=== PATIENT | male | born 1990 | race Caucasian/White ===

== ENCOUNTER 2017-05-11 17:35 | Emergency (ER) | payer BC ==
[2017-05-11 17:45] VITALS: BP 133/74
[2017-05-11] MEDS ORDERED: CALAMINE/ZINC OXIDE 177 ML BOTTLE TOP STA (17:53)
--- NOTE | 2017-05-11 18:05 | ED Physician Documentation ---
PD HPI SKIN - Stated complaint Stated Complaint: SUNBURN - Chief complaint Chief Complaint: General - History obtained from History obtained from: Patient - History of Present Illness Timing - onset: How many days ago (2) Timing - details: Still present Location: Chest, Back Similar symptoms before: Has not had sx before - Additional information Additional information: The patient is an otherwise healthy 26-year-old male who presents with sunburn that he acquired 2 days ago. He complains of "deep itching" on his chest and back. He has applied anti-itch cream, without relief. He denies fever, headache, shortness of breath, nausea or vomiting. He denies history of similar symptoms in the past. Review of Systems Constitutional: denies: Fever Eyes: denies: Irritation Nose: denies: Congestion Throat: denies: Sore throat Respiratory: denies: Dyspnea GI: denies: Nausea, Vomiting Skin: reports: Other (Pruritic sunburn) Musculoskeletal: denies: Extremity swelling Neurologic: denies: Headache PD PAST MEDICAL HISTORY - Past Medical History Cardiovascular: None Respiratory: None Neuro: None Endocrine/Autoimmune: None - Past Surgical History Past Surgical History: No - Present Medications Home Medications: Ambulatory Orders Medication Instructions Recorded Confirmed diphenhydrAMINE [Benadryl] 50 mg PO Q4-6H #40 capsule 05/11/17 - Allergies Allergies/Adverse Reactions: Allergies Allergy/AdvReac Type Severity Reaction Status Date / Time No Known Drug Allergies Allergy Verified 05/10/15 18:01 - Social History Does the pt smoke?: Yes Smoking Status: Current every day smoker Does the pt drink ETOH?: Yes Does the pt have substance abuse?: No - Immunizations Immunizations are current?: Yes - POLST Patient has POLST: No PD ED PE NORMAL - Vitals Vital signs reviewed: Yes (Borderline hypertension initially.) - General General: Alert and oriented X 3, Well developed/nourished, Other (Appears uncomfortable, scratching continuously at his chest.) - HEENT HEENT: Atraumatic, EOMI, Pharynx benign - Neck Neck: No adenopathy, No JVD - Cardiac Cardiac: RRR, No murmur - Respiratory Respiratory: No respiratory distress, Clear bilaterally - Abdomen Abdomen: Soft, Non tender - Back Back: No CVA TTP - Derm Derm: Other (Erythema over his back, superior chest, and tops of his shoulders, consistent with sunburn.) - Extremities Extremities: No edema, No calf tenderness / cord - Neuro Neuro: Alert and oriented X 3, No motor deficit, No sensory deficit Results - Vitals Vitals: Oxygen O2 Source Room air PD MEDICAL DECISION MAKING - ED course Complexity details: re-evaluated patient, considered differential, d/w patient ED course: The patient's presentation is significant for sunburn with distressing pruritus. There is no clinical evidence of cellulitis. Treatment in the emergency department included application of calamine lotion topically. Benadryl tablet was dispensed for the patient to take at home, because he would be driving when he leaves the emergency department. He is being discharged with prescription for Benadryl. I discussed with him the expected course of injury, symptomatic treatment and outpatient follow-up if needed, as well as potentially worrisome signs or symptoms that should prompt reevaluation in the emergency department. Departure - Departure Disposition: 01 Home, Self Care Clinical Impression: Sunburn Condition: Stable Instructions: ED Burn Sunburn Prescriptions: diphenhydrAMINE [Benadryl] 50 mg PO Q4-6H #40 capsule Comments: 1. You can use ibuprofen, up to 800 mg 3 times daily for its anti-inflammatory effect. 2. You can use calamine lotion to help with the itching of the burn. 3. He can also use Benadryl, up to 50 mg every 6 hours as needed for itching. Benadryl can make you sleepy and unreliable to operate machinery, such as driving. 4. Follow-up with your primary physician if not improving within 1 week. 5. Return to the emergency department if increasing rash or itching, shortness of breath, or otherwise worsening symptoms. Discharge Date/Time: 05/11/17 18:15
[2017-05-11] MEDS ORDERED: diphenhydrAMINE 25 MG CAPSULE PO STA (18:12)
[2017-05-11] MEDS ORDERED: diphenhydrAMINE 25 MG CAPSULE PO ONE (18:14)
== END 2017-05-11 18:15 | disposition home or self-care (01) ==
LOC: ED 17:35
DX: L55.9 Sunburn, unspecified (principal); L29.9 Pruritus, unspecified; F17.200 Nicotine dependence, unspecified, uncomplicated
CPT/HCPCS: 99282; 99283; A9270